=== PATIENT | female | born 1985 | race Caucasian/White ===

== ENCOUNTER 2017-06-03 21:32 | Emergency (ER) | payer OTHER ==
[~2017-06-03] VITALS: Ht 162.6 cm; Wt 120.0 kg
[2017-06-03 22:36] LABS: HEMATOCRIT 37.7 % (36.0-46.0); HEMOGLOBIN 12.8 G/DL (11.9-15.5); MCH 30.3 PG (29.0-34.0); MCV 89.1 FL (83-99); PLATELET COUNT 191 K/uL (156-360); RBC DIS.WIDTH-CV 12.6 % (11.8-14.6); RBC DIS.WIDTH-SD 40.8 % (39-53); RED BLOOD COUNT 4.23 M/uL (3.80-5.20); WHITE BLOOD COUNT 6.9 K/uL (4.1-10.2)
[2017-06-03 23:16] LABS: ALBUMIN 4.6 g/dL (3.2-4.8); CHLORIDE 104 mEq/L (99-109); POTASSIUM 3.7 mEq/L (3.7-5.4); SODIUM 140 mEq/L (136-147)
[2017-06-03 23:19] LABS: GLUCOSE 98 mg/dL (70-99); TOTAL PROTEIN 8.4 g/dL (6.4-8.3)
[2017-06-03 23:20] LABS: TROP-I INTERPRETATION NEGATIVE; TROPONIN-I < 0.01 ng/mL (0.0-0.30)
[2017-06-03 23:21] LABS: TOTAL BILIRUBIN 0.3 mg/dL (0.0-1.0)
[2017-06-03 23:22] LABS: ALKALINE PHOSPHATASE 70 IU/L (3-129); CREATININE 0.9 mg/dL (0.6-1.3)
[2017-06-03 23:23] LABS: UREA NITROGEN (BUN) 10 mg/dL (9-23)
[2017-06-03 23:24] LABS: AST (GOT) 19 IU/L (2-34)
[2017-06-03 23:25] LABS: ALT (GPT) 17 IU/L (3-49)
[2017-06-03 23:26] LABS: GFR ESTIMATE (CALCULATED) > 59 mL/min/; LIPASE 16 U/L (1.0-51.0)
[2017-06-03 23:31] LABS: QUANTITATIVE HCG < 4.0 MIU/ML
[2017-06-04] VITALS: BP 113/75
== END 2017-06-04 00:02 | disposition home or self-care (01) ==
LOC: EME 21:32
PROVIDERS: Emergency Medicine
DX: R07.9 Chest pain, unspecified (principal); K83.9 Disease of biliary tract, unspecified; F41.9 Anxiety disorder, unspecified
CPT/HCPCS: 71045; 80053; 81003; 83690; 84484; 84702; 85027; 93005; 99281; 99285